=== PATIENT | male | born 1940 | race Caucasian/White ===

== ENCOUNTER 2016-12-03 16:51 | Emergency (ER) | payer MEDICARE, BC ==
[~2016-12-03] VITALS: Ht 170.2 cm; Wt 117.5 kg
[~2016-12-03 16:51] MED LIST: ACET-704 PO; ASPI81TA15 PO; ENOX40DI SQ; FURO-69 PO; GLIM4TAB2 PO; INSU100I17 SQ; INSU100V13 SQ; LEVO750T5 IV; LISI10TA2 PO; METR500T PO; MULT-658 PO; MULT1TAB57 PO; Metolazone PO; NYST1POW4 MC; POTA20TA4 PO; QUIN10TA7 PO; SITA1TBM PO; VANC1.5P3 IV
[2016-12-03] MEDS ORDERED: LIDOCAINE 2% JELLY 10ML IN APPLICATOR. MM ONE (17:30)
[2016-12-03] MEDS ORDERED: IOHEXOL 300 MG/ML 75 ML VIAL. IV ONE (17:40)
[2016-12-03 18:14] LABS: BASO # 0.1 x10^3/uL (0.0-0.2); BASO % 1 % (0-3); EOS % 0 % (0-3); HEMATOCRIT 34.2 % (39.0-53.0); HEMOGLOBIN 10.9 g/dL (13.0-17.5); LYMPH % 6 % (24-48); MEAN CORPUSCULAR HEMOGLOBIN 28 pg (25-35); MEAN CORPUSCULAR HGB CONC 32 g/dL (31-37); MEAN CORPUSCULAR VOLUME 86 fL (79-100); MONO % 6 % (0-9); NEUT # 16.3 x10^3uL (1.8-7.7); NEUT % 88 % (31-73); PLATELET COUNT 304 x10^3/uL (140-400); RED BLOOD COUNT 3.97 x10^6/uL (4.30-5.70); RED CELL DISTRIBUTION WIDTH 15.6 % (11.5-14.5); WHITE BLOOD COUNT 18.5 x10^3/uL (4.0-11.0)
[2016-12-03 18:17] LABS: AMORPHOUS SEDIMENT,UR PRESENT /HPF; BACTERIA,URINE 0 /HPF (0-FEW); BILIRUBIN,URINE NEG (NEG); CLARITY,URINE CLEAR; COLOR,URINE STRAW; GLUCOSE,URINE >=1000 mg/dL (NEG); NITRITE,URINE NEG (NEG); RBC,URINE OCC /HPF (0-2); UROBILINOGEN,URINE 0.2 mg/dL (0.2 mg/dL); WBC,URINE OCC /HPF (0-4)
[2016-12-03 18:24] LABS: BARBITURATES NEG (NEG); BENZODIAZEPINES NEG (NEG); CANNABINOIDS NEG (NEG); COCAINE NEG (NEG); METHADONE NEG (NEG); OPIATES POS (NEG); PHENCYCLIDINE NEG (NEG)
[2016-12-03 18:25] LABS: AMPHETAMINE/METHAMPHETAMINE NEG (NEG)
[2016-12-03] MEDS ORDERED: FUROSEMIDE 40 MG/4 ML VIAL IVP ONE (19:00)
[2016-12-03] MEDS ORDERED: VANCOMYCIN PER PHARMACY MC PRN (19:00)
[2016-12-03] MEDS ORDERED: FLUCONAZOLE 100 MG TABLET. PO ONE (19:00)
[2016-12-03] MEDS ORDERED: VANCOMYCIN 2 GM in IV NORMAL SALINE 500ML 500 ML IV ONE (19:15)
[2016-12-03] MEDS ORDERED: IV NORMAL SALINE 500ML 500 ML ONE (19:22)
[2016-12-03] MEDS ORDERED: VANCOMYCIN 1 GM VIAL. ONE (19:22)
--- NOTE | 2016-12-03 19:40 | PHYS DOC ---
General Chief Complaint: WEAKNESS/GENERALIZED Stated Complaint: WEAKNESS Time Seen by MD: 19:36 Source: patient Exam Limitations: other (vague historian) Problems: History of Present Illness Initial Comments Pt is 76/M to ED from home via EMS for generalized weakness and repeated falls. Pt signed out to me at [address] Gardner documentation as part of this record. EMS reports they were called twice to pt home today for falls without apparent injury. Upon the third call for fall without injury EMS chose to bring pt for evaluation. Pt states he uses a walker due to left foot ulcer/osteomyelitis and weakness, he says that twice today he got the walker caught on carpet and once the dog got in his way causing his falls. Pt denies injury from the falls, specifically denies head trauma/LOC. Pt denies focal weakness, he says that he' s been feeling weak past few days. Attributes his falls today to weakness. No f/chills/cp/sob/n/v/diaphoresis/arm symptoms/palpitations/vision changes. C- collar placed and CT ordered for possible occult injury Nexus criteria. Complicating factors include a severe left foot DM ulcer as well as sacral ulcer which are greatly improved per pt, follows with Dr Curtis wound care. Currently taking "an antibiotic" no clue the name, he takes it once daily. On ED arrival pt c/o low abdominal discomfort, inguinal region erythematous from urine exposure, penis with phimosis oozing urine/reddish discharge from urethral meatus. Spangler placed with difficulty, pt voided resolving symptoms see Dr Gardner note. Pt states he's not seen an increase in his fasting glucose, no increase in LLE osteomyelitis symptoms, only complaint is "weakness." A Relebron is PCP Dr Curtis is Fuels Engineer ED VS: 97.7, 97, 32, 167/78, 94% RA Timing/Duration: 24 hours Severity: severe Modifying Factors: worse with movement, improves with rest Associated Symptoms: malaise, weakness Allergies: Coded Allergies: Penicillins (Verified Allergy, Intermediate, Hives, 07/02/15) Past Medical History Medical History: other (DM2, CAD, HLP, atrial fibrillation, CKD, chronic pain, CHF, bilateral ankle neuropathic arthropathy) Surgical History: other (vasectomy, L Hip replacement, CABG x 4 (approx 5 years ago PMC)) Social History Smoker: non-smoker Alcohol: none Drugs: none Review of Systems Constitutional: denies chills, denies diaphoresis, denies fever, malaise Respiratory: denies cough, denies shortness of breath, denies wheezing Cardiovascular: denies chest pain, denies palpitations, denies syncope Gastrointestinal: abdominal paindenies constipation, denies diarrhea, denies nausea, denies vomiting Genitourinary: see HPI Musculoskeletal: see HPI Skin: see HPI Psychiatric/Neurological: see HPIdenies headache Physical Exam General Appearance: no apparent distress (c-collar placed ), obese Eyes: bilateral eye EOMI, bilateral eye PERRL, bilateral eye normal inspection Ear, Nose, Throat: hearing grossly normal, normal ENT inspection, normal pharynx Neck: full range of motion, supple Respiratory: chest non-tender, no respiratory distress, other (decreased at bases b/l, coarse throughout) Cardiovascular: normal peripheral pulses, irregularly irregular Gastrointestinal: normal bowel sounds, non tender, soft (obese) Back: no CVA tenderness, no vertebral tenderness Extremities: other (scabbed ulceration at medial navicular L foot with swelling /warmth no purulence) Neurologic/Psychiatric: family caseworker II-XII nml as tested, no motor/sensory deficits, alert, normal mood/affect, oriented x 3 Skin: warm/dry (genital excoriations, glute decube, and right foot ulcer as above. Skin changes at skin folds globally c/w bel) Orders, Labs, Meds EKG: sinus 97bpm, RBBB with RVH, ST changes no STEMI criteria PCXR: No acute cardiopulmonary process, sternotomy changes noted Left Foot: soft tissue swelling with mod-sev degenerative changes, no discrete fluid collection or subq air CT Head and Cervical Spine: degen C-spine changes no acute process. Abdomen/Pelvis With IV Contrast: no acute process save soft tissue gluteal infection changes BUN 32, Cr 1.6, Glu 465 (10u reg insulin IV), CRP 255.3, lactic acid 1.7, WBC 18.5, Hb 10.9, Trop I 0.222, BNP 4988, UDS +opiates, UA >1000 glu, 80 ket Pt received vancomycin/cefepime/diflucan, as well as 10u reg insulin IV, lasix 20mg IV in ED. Pt will need inpatient care including ID and wound care, will need transfer to [facility]. IMPRESSIONS: Generalized Weakness with Increasing Falls DM Uncontrolled Cutaneous Candidiasis Left Foot DM Ulcer likely Osteomyelitis Gluteal decubital ulcer Phimosis/Urethral Obstruction Renal Insufficiency Elevated BNP/Trop I and h/o CAD Moderate Malnutrition Normocytic anemia Leukocytosis 215: Pt discussed with senior application programmer Cardiology Dr Sheffield who offered that elevated biomarkers not primary issue, will see pt tomorrow no specific orders. 2156: Pt discussed with senior application programmer hospitalist at [facility] Dr Chato Arreaga who accepts pt for transfer/admission. Departure Time of Disposition: 22:11 Disposition: 05 XFER OTHER Diagnosis: Weakness/Falls, osteomyelitis, cutaneous candidias Condition: STABLE Additional Instructions: EMS transfer to [facility] Dr Chato Arreaga is accepting. MELCHOR SANCHEZ DO Dec 03, 2016 19:40
[2016-12-03 19:45] LABS: ALBUMIN 2.4 g/dL (3.4-5.0); ALBUMIN/GLOBULIN RATIO 0.4 (1.0-1.7); CALCIUM 9.1 mg/dL (8.5-10.1); CREATININE 1.6 mg/dL (0.7-1.3); GFR 42.3; TOTAL BILIRUBIN 0.6 mg/dL (0.2-1.0); TOTAL PROTEIN 7.8 g/dL (6.4-8.2)
--- NOTE | 2016-12-03 19:45 | ED.ADGEN ---
Past History Past Medical History: CAD, Diabetes Past Surgical History: Coronary Bypass Surgery, Other Smoking: Non-smoker Alcohol Use: None Drug Use: None Adult General HPI HPI Patient is a 76-year-old man, with history of type 2 diabetes mellitus, CAD, who presents to the emergency department with multiple complaints. Patient presents via EMS, with report of multiple falls, patient states that he is weak which is causing him to fall down, but he is unable to relate exactly details. He denies striking his head and denies any loss of consciousness, c-collar was placed in the emergency department due to concern for occult injury following Nexus criteria. Denies any headache or neck pain, denies any chest pain or shortness breath, any nausea or vomiting, denies any focal weakness numbness or tingling, is complaining of abdominal pain, and some difficulty with urination, is noted to have leaking urine with evidence of phimosis, and excoriation of the inner thighs and buttocks and scrotal region. Unclear if he is has been compliant with his medications. Review of Systems Review of Systems Constitutional: Denies fever or chills [] generalized malaise and weakness. Eyes: Denies change in visual acuity, redness, or eye pain [] HENT: Denies nasal congestion or sore throat [] Respiratory: Denies cough or shortness of breath [] Cardiovascular: No additional information not addressed in HPI [] GI: Denies nausea, vomiting, bloody stools or diarrhea [] abdominal pain. : Dysuria and difficulty passing urine. Musculoskeletal: Denies back pain or joint pain [] weakness and falls. Integument: Denies rash or skin lesions [] Neurologic: Denies headache, focal weakness or sensory changes [] Endocrine: Denies polyuria or polydipsia [] Current Medications Current Medications Current Medications Medications (Trade) Dose Ordered Sig/Cris Start Time Stop Time Status Last Admin Dose Admin Fluconazole (Diflucan) 200 mg 1X ONCE 12/03/16 19:00 12/03/16 19:01 DC Furosemide 20 mg 20 mg 1X ONCE 12/03/16 19:00 12/03/16 19:01 DC Iohexol (Omnipaque 300 Mg/ml) 75 ml 1X ONCE 12/03/16 17:40 12/03/16 17:41 DC Lidocaine HCl (Uro-Jet) 1 shashi 1X ONCE 12/03/16 17:30 12/03/16 17:31 DC 12/03/16 17:30 1 SHASHI Sodium Chloride (Iv Sodium Chloride 0.9% 500ml) 500 ml @ As Directed STK-MED ONCE 12/03/16 19:22 12/03/16 19:23 DC Vancomycin HCl 1 gm STK-MED ONCE 12/03/16 19:22 12/03/16 19:23 DC Vancomycin HCl (Vanco Per Pharmacy) 1 each PRN DAILY PRN 12/03/16 19:00 UNV Vancomycin HCl 2 gm/Sodium Chloride 500 ml @ 250 mls/hr 1X ONCE 12/03/16 19:15 12/03/16 21:14 Allergies Allergies Allergies Coded Allergies Type Severity Reaction Last Updated Verified Penicillins Allergy Intermediate Hives 07/02/15 Yes Physical Exam Physical Exam Constitutional: Well developed, well nourished, ill in appearance, appears uncomfortable. HENT: Normocephalic, atraumatic, bilateral external ears normal, oropharynx moist, no oral exudates, nose normal. [] Eyes: PERRLA, EOMI, conjunctiva normal, no discharge. [] Neck: Normal range of motion, no tenderness, supple, no stridor. [] Cardiovascular:Heart rate regular rhythm, no murmur, S1, S2, no rubs or gallops. [] Lungs & Thorax: Diminished present bilaterally, mild rales at bases, no rhonchi. Abdomen: Bowel sounds normal, soft, obese, tenderness to palpation in the lower abdomen, patient with excoriations noted in the genital region throughout the scrotum, noted to have small ulceration on the right buttock, no surrounding abscess formation, tenderness to palpation but no significant induration, mild brownish drainage noted, tenderness, no masses, no pulsatile masses. [] Skin: Warm, dry, no erythema, no rash. [] Back: No tenderness, no CVA tenderness. [] Extremities: No tenderness, no cyanosis, no clubbing, ROM intact, no edema. [] Neurologic: Alert and oriented X 3, normal motor function, normal sensory function, no focal deficits noted. [] Psychologic: Affect normal, judgement normal, mood normal. [] Examination: Patient with phimosis, with swelling and erythema of the foreskin, unable to retract foreskin. No abscess formation or induration of the scrotum, entire area is excoriated and tender. Current Patient Data Vital Signs Vital Signs Date Time Temp Pulse Resp B/P Pulse Ox O2 Delivery O2 Flow Rate FiO2 12/03/16 16:51 97.7 97 30 94 Room Air Lab Results Laboratory Tests Test 12/03/16 17:45 White Blood Count 18.5x10^3/uL (4.0-11.0) H Red Blood Count 3.97x10^6/uL (4.30-5.70) L Hemoglobin 10.9g/dL (13.0-17.5) L Hematocrit 34.2% (39.0-53.0) L Mean Corpuscular Volume 86fL (79-100) Mean Corpuscular Hemoglobin 28pg (25-35) Mean Corpuscular Hemoglobin Concent 32g/dL (31-37) Red Cell Distribution Width 15.6% (11.5-14.5) H Platelet Count 304x10^3/uL (140-400) Neutrophils (%) (Auto) 88% (31-73) H Lymphocytes (%) (Auto) 6% (24-48) L Monocytes (%) (Auto) 6% (0-9) Eosinophils (%) (Auto) 0% (0-3) Basophils (%) (Auto) 1% (0-3) Neutrophils # (Auto) 16.3x10^3uL (1.8-7.7) H Lymphocytes # (Auto) 1.0x10^3/uL (1.0-4.8) Monocytes # (Auto) 1.0x10^3/uL (0.0-1.1) Eosinophils # (Auto) 0.0x10^3/uL (0.0-0.7) Basophils # (Auto) 0.1x10^3/uL (0.0-0.2) Platelet Estimate Pending Prothrombin Time 11.6SEC (9.4-11.4) H Prothrombin Time INR 1.1 (0.9-1.1) PTT 24SEC (23-33) Urine Collection Type U cath Urine Color Straw Urine Clarity Clear Urine pH 5.0 Urine Specific [place] <=1.005 Urine Protein 30 mg/dl (NEG-TRACE) Urine Glucose (UA) >=1000mg/dL (NEG) Urine Ketones (Stick) 80mg/dL (NEG) Urine Blood Mod (NEG) Urine Nitrite Neg (NEG) Urine Bilirubin Neg (NEG) Urine Urobilinogen Dipstick 0.2mg/dL (0.2 mg/dL) Urine Leukocyte Esterase Neg (NEG) Urine RBC Occ/HPF (0-2) Urine WBC Occ/HPF (0-4) Urine Squamous Epithelial Cells None/LPF Urine Amorphous Sediment Present/HPF Urine Bacteria 0/HPF (0-FEW) Lactic Acid Level 1.7mmol/L (0.4-2.0) Troponin I Quantitative 0.222ng/mL (0-0.055) H KG-Wkr-W-Type Natriuretic Peptide 4988pg/mL (0-449) H Urine Opiates Screen Pos (NEG) Urine Methadone Screen Neg (NEG) Urine Barbiturates Neg (NEG) Urine Phencyclidine Screen Neg (NEG) Urine Amphetamine/Methamphetamine Neg (NEG) Urine Benzodiazepines Screen Neg (NEG) Urine Cocaine Screen Neg (NEG) Urine Cannabinoids Screen Neg (NEG) Urine Ethyl Alcohol Neg (NEG) EKG EKG EC: Sinus rhythm, heart rate 97 bpm, right axis deviation with right bundle karen block noted with right ventricular hypertrophy, contour normality is noted in the inferior and lateral leads, with ST elevation noted in lead 2 of 1 mm, and abdomen of depression and aVR, abnormal ECG, does not meet STEMI criteria. As interpreted by me. [] Radiology/Procedures Radiology/Procedures Chest x-ray: One view: Patient with cardiomegaly noted, evidence of mild cephalization, sternotomy wires in place, no pneumothorax, no soft tissue or bony abnormalities identified. Left foot x-ray: Three-view: Patient was significant soft tissue swelling noted , degenerative changes of the foot and ankle, no acute fracture identified, no tracking gas no obvious fluid collection. As interpreted by me. [] Course & Med Decision Making Course & Med Decision Making Pertinent Labs and Imaging studies reviewed. (See chart for details) multiple attempts to place Spangler catheter, as patient is leaking urine from foreskin with phimosis as stated, Spangler catheter was passed after use of Urojet and several attempts stabilization. Draining urine without issue. Due to tenderness of the abdomen, and evidence of erythema and irritation to the scrotal and buttock region with small abscess on the right buttock and history of diabetes, will obtain imaging of the abdomen and pelvis to rule out any larger infectious process or acute abdominal process. Multiple attempts to obtain laboratory studies. Patient resting more comfortably after placement of Spangler catheter, awaiting laboratory studies imaging at time of sign out to Dr. Chamorro, who will follow laboratory studies and imaging and disposition the patient. Final Impression Final Impression [] Problems: Dragon Disclaimer Dragon Disclaimer This electronic medical record was generated, in whole or in part, using a voice recognition dictation system. SHER OLEA DO Dec 03, 2016 19:45
--- NOTE | 2016-12-03 20:43 | RAD ---
PROCEDURE CT of the head and CT of the cervical spine without contrast HISTORY Multiple falls, weakness, confusion today. TECHNIQUE One or more of the following individualized dose reduction techniques were utilized for this examination: 1. Automated exposure control; 2. Adjustment of the mA and/or kV according to patient size; 3. Use of iterative reconstruction technique. COMPARISON CT head of May 30, 2015. FINDINGS CT head: There is no evidence of hemorrhage or an acute area of infarction. There is unchanged prominence of the lateral ventricles and sulci consistent with cerebral atrophy. There is no shift of the midline structures. The basal cisterns are well maintained. No mass lesion is seen. Bone windows show no skull fracture. There is slight motion on some of the images through the for. Visualized portions of paranasal sinuses and mastoid air cells are clear. CT cervical spine: No fracture or subluxation is seen. There are degenerative changes at the C6-7 with disc space narrowing and significant posterior osteophyte formation. The posterior osteophyte formation is causing narrowing of the AP dimension of the spinal canal to 9 millimeters and is causing right foraminal stenosis inferiorly. The spinal canal is not narrowed at other levels. The paraspinous soft tissues are unremarkable except for calcification of the carotid bulbs.. IMPRESSION 1. CT of the head shows no acute abnormality. 2. The CT of the cervical spine shows no fracture or subluxation. There are degenerative changes with posterior osteophyte formation at C5-6. Posterior osteophyte formation is causing moderate narrowing of the spinal canal and mild right foraminal stenosis. Electronically signed by: Jacinda Sosa (Dec 03, 2016 20:41:54)
--- NOTE | 2016-12-03 20:48 | RAD ---
PROCEDURE CT of the abdomen and pelvis with contrast HISTORY Multiple recent falls weakness abdominal pain open wound on right buttock region. TECHNIQUE Following injection of 60 cc of Omnipaque 300, images were obtained through the abdomen and pelvis. No oral contrast was given. One or more of the following individualized dose reduction techniques were utilized for this examination: 1. Automated exposure control; 2. Adjustment of the mA and/or kV according to patient size; 3. Use of iterative reconstruction technique. COMPARISON None FINDINGS The liver and spleen are normal in size without focal lesions. The pancreas, adrenal glands, and kidneys are unremarkable. The unopacified bowel loops are normal. No free fluid or free air is seen. A Spangler catheter is in place draining the bladder. There is stranding in the subcutaneous fat of the right of buttocks just lateral to the gluteal fold area. No discrete abscess is seen. There has been a left total hip replacement. The visualized bony structures are otherwise unremarkable. No fracture or bony destruction is identified. IMPRESSION No significant abnormality is seen. There is stranding in the subcutaneous fat of the right buttock cyst adjacent to the gluteal fold area. This may be due to trauma or possibly infection. Electronically signed by: Jacinda Sosa (Dec 03, 2016 20:47:30)
[2016-12-03 20:49] LABS: % BASOS 1 % (0-3); % LYMPHS 2 % (24-48); % METAS 1 % (0-0); % MONOS 4 % (0-10); % SEGS 92 % (35-66)
[2016-12-03 20:50] LABS: OVALOCYTES OCC; PLT ESTIMATE ADEQUATE (ADEQUATE); POLYCHROMASIA SLIGHT; SCHISTOCYTES OCC; TOXIC GRANULATION SLIGHT
[2016-12-03] MEDS ORDERED: INSULIN REGULAR 100 UNIT/ML 10ML VIAL. IV ONE (22:00)
[2016-12-03] MEDS ORDERED: FENTANYL PF 100 MCG/2 ML VIAL. IV ONE (23:00)
[2016-12-03 23:03] VITALS: BP 138/67
--- NOTE | 2016-12-03 23:34 | EKG ---
[address] [address] Test Date: 2016-12-03 Test Time: 17:24:46 Pat Name: ROWDY MCCONNELL Department: Room: Gender: M Quality Engineering Manager: RACHELLE : 1940 Requested By: SHER OLEA Order Number: [id number] Reading MD: Agustin Sheffield Measurements Intervals [place] Rate: 97 P: 138 VA: 138 QRS: -144 QRSD: 138 T: 123 QT: 364 QTc: 467 Interpretive Statements SINUS RHYTHM LAFB LIMB LEAD MISPLACEMENT RBBB Electronically Signed On 12-06-2016 10:01:06 CDT by Agustin Sheffield
--- NOTE | 2016-12-04 09:10 | RAD ---
Portable chest, 12/03/2016: History: Shortness of breath, weakness, falls Comparison is made to a study from 08/08/2015. There has been a previous median sternotomy. The heart is at the upper limits of normal in size. The pulmonary vascularity is normal. No pulmonary infiltrates are seen. There is no evidence of pleural fluid or pneumothorax. Mild degenerative changes are present at both shoulders. IMPRESSION: No acute cardiopulmonary abnormality is detected.
--- NOTE | 2016-12-04 10:23 | RAD ---
Left foot, 3 views, 12/03/2016: History: Foot pain and swelling and redness Comparison is made to a study from 07/03/2015. There is a chronic valgus deformity involving the forefoot. There are moderate scattered degenerative changes at interphalangeal joints, the first MTP joint and at the midfoot level. No acute fracture or destructive bony lesion is seen. Arterial calcifications are present. There is extensive soft tissue swelling about the foot and ankle IMPRESSION: 1. Chronic findings as described above. 2. No acute bony abnormality is detected.
== END 2016-12-03 23:25 | disposition short-term general hospital (02) ==
LOC: ER 16:51
DX: R53.1 Weakness (principal); M86.9 Osteomyelitis, unspecified; B37.2 Candidiasis of skin and nail; E11.621 Type 2 diabetes mellitus with foot ulcer; L97.529 Non-pressure chronic ulcer of other part of left foot with unspecified severity; I25.10 Atherosclerotic heart disease of native coronary artery without angina pectoris; E78.5 Hyperlipidemia, unspecified; I12.9 Hypertensive chronic kidney disease with stage 1 through stage 4 chronic kidney disease, or unspecified chronic kidney disease; E11.22 Type 2 diabetes mellitus with diabetic chronic kidney disease; N18.9 Chronic kidney disease, unspecified; G89.29 Other chronic pain; I48.91 Unspecified atrial fibrillation; Z95.1 Presence of aortocoronary bypass graft; Z88.0 Allergy status to penicillin
CPT/HCPCS: 36415; 51702; 70450; 71010; 72125; 73630; 74177; 80053; 80305; 81001; 82550; 82947; 83605; 83690; 83880; 84484; 85007; 85027; 85610; 85730; 86140; 87040; 93005; 96374; 96375; 99285; J1815; J1940; J3010; J3370; J7040; Q9967; 87205; G0481